=== PATIENT | male | born 1990 | race Caucasian/White ===

== ENCOUNTER 2017-08-25 20:09 | Emergency (ER) | payer OTHER ==
[~2017-08-25] VITALS: Ht 188 cm; Wt 143.1 kg
[2017-08-25 20:13] VITALS: TEMP 36.9; Ht 188 cm; Wt 143.1 kg
[2017-08-25] MEDS ORDERED: CYCLOBENZAPRINE HCL 10 MG TAB PO STA (20:46)
[2017-08-25] MEDS ORDERED: OXYCODONE/ACETAMINOPHEN 5-325 TAB PO STA (20:46)
[2017-08-25] MEDS ORDERED: IBUPROFEN 200 MG TAB PO STA (20:46)
--- NOTE | 2017-08-25 20:50 | EMERGENCY ROOM VISIT NOTE ---
History First contact with patient: 20:33 Chief Complaint: BACK PAIN Stated Complaint: BACK PAIN,WC History of Present Illness The patient is a 27 year old male who presents to the Emergency Room with complaints of mid thoracic and lower back pain that started at work today. The patient was lifting a heavy object. He turned to the right in the flexed position when he felt a "pop" in his back. He has not taken anything for pain. He denies any previous injury to his back. The pain is shooting down the back of his left leg. He denies any numbness or tingling. No urinary or bowel incontinence. No saddle paresthesias. Review of Systems 6 system review negative. Please see pertinent positives in the history of present illness section. Past Medical/Surgical History Otherwise healthy Family History Diabetes Social History Smoking Status: Current Every Day Smoker Marital Status: in relationship Occupation Status: employed Current/Historical Medications Scheduled Cyclobenzaprine Hcl (Flexeril), 10 MG PO TID Scheduled PRN Ibuprofen Tab (Motrin), 800 MG PO Q8H PRN for Pain Oxycodone Ir (Roxicodone Ir), 1-2 TAB PO Q4H PRN for Pain Physical Exam Vital Signs Date Time Temp Pulse Resp B/P (MAP) Pulse Ox O2 Delivery O2 Flow Rate FiO2 08/25/17 22:20 76 17 142/84 95 08/25/17 22:08 76 17 142/84 95 Room Air 08/25/17 20:13 36.9 104 18 145/94 97 Room Air Physical Exam VITALS: Vitals are noted on the nurse's note and reviewed by myself. Vital signs stable. GENERAL: 27-year-old male, in no acute distress, nondiaphoretic, SKIN: The skin was without rashes, erythema, edema, or bruising. HEAD: Normocephalic atraumatic. NECK: . Cervical spine is nontender. No JVD. HEART: Regular rate and rhythm without murmurs gallops or rubs. LUNGS: Clear to auscultation bilaterally without wheezes, rales or rhonchi. No accessory muscle use. MUSCULOSKELETAL: Mild tenderness to palpation over the mid thoracic spine to the mid lumbar spine. No tenderness over the SI joint. Left paraspinous muscle cramping. Negative straight leg test bilaterally. Strength 5/5 throughout. NEURO: Patient was alert and oriented to person place and time. Normal sensation to touch. No focal neurological deficits. Medical Decision & Procedures ER Provider Diagnostic Interpretation: T spine xray IMPRESSION: No acute bony abnormalities seen involving the thoracic spine. L spine xray IMPRESSION: Unremarkable radiographic evaluation of the lumbosacral spine. Medications Administered Medications (Trade) Dose Ordered Sig/Sharlene Route Start Time Stop Time Status Last Admin Dose Admin Oxycodone/ Acetaminophen (Percocet 5-325mg Tab) 2 tab NOW STAT PO 08/25/17 20:46 08/25/17 20:47 DC 08/25/17 20:57 2 TAB Ibuprofen (Advil Tab) 800 mg NOW STAT PO 08/25/17 20:46 08/25/17 20:47 DC 08/25/17 20:55 800 MG Cyclobenzaprine HCl (Flexeril Tab) 10 mg NOW STAT PO 08/25/17 20:46 08/25/17 20:47 DC 08/25/17 20:54 10 MG ED Course The patient was seen and examined. He was given 2 Percocet and ibuprofen 800 mg for pain. He was also given 10 mg of Flexeril for muscle spasms. Imaging was performed and reviewed Upon reevaluation, the patient was resting more comfortably. We discussed the results of his imaging. He voiced understanding. 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 Medical Decision Differential diagnosis: Spine fracture, ligamentous injury, subluxation, spondylolisthesis, spondylosis, herniated disc, contusion, muscle spasm This patient is a 27-year-old male that presents to the emergency department with mid thoracic back pain extending down into the lumbar area and down the back of his left leg. He is neurovascularly intact. Thoracic and lumbar films were obtained. No acute abnormalities were noted. The patient had good symptomatic relief in the emergency department. He will rest and ice the area. He was given a short course of narcotics, NSAIDs and a muscle relaxant. He was also given 2 days off work. He will follow-up with his primary care physician if his symptoms do not improve over the next 2-3 days. He will also return to the emergency department with any new or worsening symptoms This chart was completed in part utilizing [employer] Speech Voice Recognition software. Attempts were made to minimize the grammatical errors, random word insertions, pronoun errors and incomplete sentences. Any formal questions or concerns about the content, text or information contained within the body of this dictation should be directly addressed to the provider for clarification. Blood Pressure Screening Patient's blood pressure: Elevated blood pressure Blood pressure disposition: Elevated BP felt to be situational Impression Primary Impression: Back pain Departure Information Dispostion Home / Self-Care Condition GOOD Prescriptions Ibuprofen Tab (MOTRIN) 800 Mg Tab 800 MG PO Q8H Y for Pain, #10 TAB For Initial Treatment Prov: Alannah Zimmerman PA-C 08/25/17 Cyclobenzaprine Hcl (FLEXERIL) 10 Mg Tab 10 MG PO TID for Muscle Spasms, #20 TAB Prov: Alannah Zimmerman PA-C 08/25/17 Oxycodone Ir (Roxicodone Ir) 5 Mg Tab 1-2 TAB PO Q4H Y for Pain, #15 TAB For Initial Treatment Prov: Alannah Zimmerman PA-C 08/25/17 Referrals No Doctor, Assigned (PCP) Patient Instructions ED Low Back Pain Injury, [facility] Additional Instructions Tylenol and ibuprofen for pain Ibuprofen 800 mg and/or Tylenol 1000 mg every 8 hours for pain. You may also alternate these medications for more effective pain relief: Ibuprofen --4 HRS--> Tylenol --4 HRS--> ibuprofen --4 HRS--> Tylenol .... Oxycodone for severe pain Oxycodone Immediate Release (OxyIR) 5mg: Take 1-2 pills every four hours for pain. Avoid alcohol, operating machinery or dangerous equipment, working on ladders or roofs, DRIVING, or situations where being under the influence may be dangerous. It is recommended to use an [id number] stool softener such as Colace, 100mg twice daily while taking this medication to avoid constipation. Flexeril every 8 hours as needed for muscle spasms. Please do not drink alcohol or drive or taking this medication. Ice over the lower back over the next 48 hours. Lying on a hard surface may help with the pain. No strenuous activity until your back is feeling better Return to the emergency department if you have any of the following symptoms: -Problems with urination -Weakness in your legs -Chest pain -Shortness of breath -Worsening pain Please follow-up with your primary care physician next 2-3 days.
[2017-08-25] MEDS ORDERED: IBUP-1451 PO (21:40)
[2017-08-25] MEDS ORDERED: CYCL10TA6 PO (21:40)
[2017-08-25] MEDS ORDERED: OXYC1TAB3 PO (21:40)
--- NOTE | 2017-08-25 21:56 | DIAGNOSTIC IMAGING REPORT ---
LUMBAR SPINE 5 VIEWS CLINICAL HISTORY: Low back pain. Lifting injury. FINDINGS: 5 views of the lumbar spine are obtained. No prior studies are available for comparison at the time of dictation. The skeletal structures are well mineralized. There is no radiographic evidence of fracture or malalignment. Vertebral body height and alignment are maintained. The transverse and spinous processes are intact. There is no evidence of spondylolysis. The intervertebral disc spaces are well-maintained. The visualized bony pelvis appears intact. There is a nonobstructed abdominal bowel gas pattern. IMPRESSION: Unremarkable radiographic evaluation of the lumbosacral spine. Electronically signed by: Hugo Fairchild M.D. 08/25/2017 9:55 PM Dictated Date/Time: 08/25/2017 9:54 PM
--- NOTE | 2017-08-25 22:08 | DIAGNOSTIC IMAGING REPORT ---
THORACIC SPINE 3 VIEWS CLINICAL HISTORY: Midthoracic back pain. Lifting injury. FINDINGS: AP, lateral, and swimmer's views of the thoracic spine are obtained. No prior studies are available for comparison at the time of dictation. The skeletal structures are well mineralized. There is no radiographic evidence of fracture or malalignment. Vertebral body height and alignment are maintained throughout the thoracic spine. Anterior osteophytes are seen throughout. A large anterior osteophyte is seen in the lower thoracic region. The transverse processes and pedicles are grossly intact as seen on the frontal view. The disc spaces appear preserved. The visualized lung parenchyma appears clear. IMPRESSION: No acute bony abnormalities seen involving the thoracic spine. Electronically signed by: Hugo Fairchild M.D. 08/25/2017 10:06 PM Dictated Date/Time: 08/25/2017 10:04 PM
[2017-08-25 22:20] VITALS: BP 142/84; PULSE 76; O2SAT 95
== END 2017-08-25 22:20 | disposition home or self-care (01) ==
LOC: C.EDB 20:11 → C.EDD 22:20
DX: M54.9 Dorsalgia, unspecified (principal); Z83.3 Family history of diabetes mellitus; F17.200 Nicotine dependence, unspecified, uncomplicated